=== PATIENT | female | born 1990 | race American Indian/Alaskan Native ===

== ENCOUNTER 2017-05-04 23:09 | Emergency (ER) | payer SELFPAY ==
[2017-05-04 23:36] VITALS: RESP 18; TEMP 98.5; O2SAT 100
[2017-05-04] MEDS ORDERED: Lidocaine 1% Inj (20ml) ONE (23:58)
--- NOTE | 2017-05-05 00:54 | ED PDOC ---
Arrival/HPI - General Historian: Patient, Partner - History of Present Illness Time/Duration: Other Context: Home <NeyJulee Crouch - Last Filed: 05/05/17 00:58> <Fredy Nevarez - Last Filed: 05/05/17 01:07> - General Chief Complaint: Abnormal Skin Integrity Time Seen by Provider: 05/04/17 23:57 - History of Present Illness Narrative History of Present Illness (Text): 05/05/17 00:00 This 27 yo female who stated she is 4 months , and has an appointment to see her [employer]PER[employer] doctor tomorrow, presents to this ED c/o right buttocks abscess x 2 days. Denies fever or rectal pain (Julee Brewster) Past Medical History - Provider Review Nursing Documentation Reviewed: Yes - Psychiatric Hx Substance Use: No <BrewsterReeirineo P - Last Filed: 05/05/17 00:58> Family/Social History - Physician Review Nursing Documentation Reviewed: Yes Family/Social History: Other (noncontributory) Smoking Status: Never Smoked Hx Alcohol Use: No Hx Substance Use: No <BrewsterRee goinsirineo Crouch - Last Filed: 05/05/17 00:58> Allergies/Home Meds <Julee Brewster - Last Filed: 05/05/17 00:58> <Fredy Nevarez - Last Filed: 05/05/17 01:07> Allergies/Adverse Reactions: Allergies No Known Allergies Allergy (Verified 05/04/17 23:32) Review of Systems - Review of Systems Constitutional: Normal. absent: Fatigue, Weight Change, Fevers Eyes: Normal ENT: Normal Respiratory: Normal Cardiovascular: Normal Gastrointestinal: Normal Genitourinary Female: Normal Musculoskeletal: Normal Skin: Abscess Neurological: Normal Endocrine: Normal Hemo/Lymphatic: Normal Psychiatric: Normal <BrewsterReeirineo P - Last Filed: 05/05/17 00:58> Physical Exam Temperature: Afebrile Blood Pressure: Normal Pulse: Regular Respiratory Rate: Normal Appearance: Positive for: Well-Appearing, Non-Toxic, Comfortable Pain Distress: None Mental Status: Positive for: Alert and Oriented X 3 - Systems Exam Head: Present: Atraumatic, Normocephalic Pupils: Present: PERRL Extroacular Muscles: Present: EOMI Conjunctiva: Present: Normal Mouth: Present: Moist Mucous Membranes Upper Extremity: Present: Normal Inspection, Normal ROM Lower Extremity: Present: Normal Inspection Neurological: Present: GCS=15, CN II-XII Intact, Speech Normal, Motor Func Grossly Intact, Normal Sensory Function, Normal Cerebellar Funct, Gait Normal Skin: Present: Warm, Dry, Normal Color, Abscess ((+) 5 cm right buttock abscess) . No: Rashes Psychiatric: Present: Alert, Oriented x 3, Normal Insight, Normal Concentration <Julee Brewster - Last Filed: 05/05/17 00:58> Vital Signs Temp Pulse Resp BP Pulse Ox 05/04/17 23:32 98.5 F 93 H 18 109/54 L 100 Medical Decision Making Re-evaluation Time: 00:58 Reassessment Condition: Re-examined, Improved <Julee Brewster - Last Filed: 05/05/17 00:58> <Fredy Nevarez - Last Filed: 05/05/17 01:07> ED Course and Treatment: 05/05/17 00:58 Re-evaluation. Patient feels better. Discussed results and plan with patient who expresses understanding. All questions answered and there is agreement with the plan to discharge home with instructions. Patient stable for discharge. Return if symptoms persist or worsen. (Julee Brewster) - Medication Orders Current Medication Orders: Cephalexin Monohydrate (Keflex) 500 mg PO STAT STA PRN Reason: Protocol Stop: 05/05/17 00:57 - Procedure PROCEDURE NOTE (Text): 05/05/17 01:02 PROCEDURE: INCISION & DRAINAGE Performed by the emergency provider Indication: Abscess Location: right buttocks Preparation: The area was prepped and draped in the usual sterile fashion and was cleansed with betadine. Local infiltration of Lidocaine 1% without Epi was used for anesthesia. Procedure: The most fluctuant portion of the abscess was incised with a #11 scalpel. Approximately 20 mL of pus was obtained. The abscess was packed with 1/4 inch packing. A dressing was applied by the RN. Post-Procedure: On exam the abscess is notably less fluctuant. The patient tolerated the procedure well, and there were no complications. (Julee Brewster) - PA / CONTRACT PROCESSOR / Resident Statement TREVOR has reviewed & agrees with the documentation as recorded. TREVOR has examined the patient and agrees with the treatment plan. <Fredy Nevarez - Last Filed: 05/05/17 01:07> Disposition/Present on Arrival - Present on Arrival Any Indicators Present on Arrival: No History of DVT/PE: No History of Uncontrolled Diabetes: No Urinary Catheter: No History of Decub. Ulcer: No History Surgical Site Infection Following: None - Disposition Have Diagnosis and Disposition been Completed?: Yes Disposition Time: 00:59 Patient Plan: Discharge <Julee Brewster - Last Filed: 05/05/17 00:58> <Fredy Nevarez - Last Filed: 05/05/17 01:07> - Disposition Diagnosis: Abscess of buttock, right Disposition: HOME/ ROUTINE Condition: IMPROVED Discharge Instructions (ExitCare): Abscess Incision and Drainage Additional Instructions: Call private doctor for follow up visit in 1-2 days. take medication as instructed. Return to emergency in 2 days if you are not able to see your doctor. Keep wound clean and dry for 2 days. Return sooner if infection worsen. Prescriptions: Cephalexin [Keflex] 500 mg PO BID #10 capsule Referrals: [facility] [Outside] - [facility] [[facility] - Follow up with primary Forms: [employer] (Tanzanian), WORK NOTE
[2017-05-05 01:20] VITALS: BP 128/60; PULSE 88
== END 2017-05-05 01:19 | disposition home or self-care (01) ==
LOC: ED 23:09
DX: L02.31 Cutaneous abscess of buttock (principal)